=== PATIENT | female | born 1990 | race Caucasian/White ===

== ENCOUNTER 2022-11-20 17:11 | Outpatient (CLI) | payer BC ==
[~2022-11-20] VITALS: Ht 160 cm; Wt 103.6 kg
[2022-11-20 18:00] VITALS: BP 110/66; PULSE 82; TEMP 98.2
--- NOTE | 2022-11-20 18:00 | NUR ---
1715: Pt ambulated onto floor, accompanied by FOB. Pt oriented to LDR6 and changed into fresh exam gown. 1727: This nurse at pt bedside for POC discussion and introductions. VS obtained, assessment completed. Pt denies ctx and vaginal bleeding. Pt reports "feeling wet since 1030 this morning. I noticed that my chair was wet and have been feeling constantly wet since then. I also noticed that he has not moved as much lately today". Amnioswab conducted,with pt consent and explanation, negative for TWIN. SROM conducted, with pt consent and explanation, and sent to lab for results. POC discussed with pt and pt significant other. Questions, concerns, and needs encouraged. Pt verbalized understanding and agreement of POC with "no" questions, concerns, or needs. 1730: SVE, with pt consent and explanation, C/T/H. [id number]: Pt off external monitors x2, ambulating to utilize bathroom. 1754: Pt back on external monitors x2. This nurse at pt bedside palpating pt abd, with pt consent and explanation, attempting to readjust external monitors x2.
[2022-11-20] MEDS ORDERED: PROZAC40 MG PO (18:23)
[2022-11-20] MEDS ORDERED: GLUCOPHAGE500 MG/TAB PO (18:24)
[2022-11-20] MEDS ORDERED: PRENATAL TABLET PO (18:24)
[2022-11-20] MEDS ORDERED: PEPCID 20MG TAB20 MG PO (18:24)
[2022-11-20 18:32] VITALS: BP 137/61; PULSE 85
--- NOTE | 2022-11-20 18:32 | NUR ---
183: This nurse notified Dr. Watts of pt progress and lab results for [facility]. Negative for LOF. See physician notification for further details. 183: Pt off external monitors x2. 1852: This nurse at pt bedside for DC POC discussion. Pt educated on Early Labor, Discomforts of , abdnormal bleeding, LOF fluids and the use of a pad, and abnormal bleeding. Pt given a copy of DC paperwork, educational packets (Early Labor and Discomforts of ), and health summary given. Pt educated on returning to clinic if LOF, abnormal vaginal bleeding, and/or consistent and persistent ctx occur. Pt also educated on drinking more fluids, pt stated "I normally drink water religiously but I have not been doing so for the past couple of days". Pt DC summary consent signed, witnessed, and obtained. Questions, concerns, and needs encouraged. Pt verbalized understanding and agreement of DC POC with "no" questions, concerns, or needs. Pt and pt significant other, accompanied by this nurse, ambulate off unit at 1853.
== END 2022-11-20 18:53 | disposition home or self-care (01) ==
LOC: LDRO 17:11
DX: Z34.93 Encounter for supervision of normal pregnancy, unspecified, third trimester (principal); Z3A.35 35 weeks gestation of pregnancy